=== PATIENT | female | born 1950 | race Caucasian/White ===

== ENCOUNTER 2025-08-23 00:32 | Emergency (ER) | payer OTHER, SELFPAY ==
[2025-08-23 00:34] VITALS: BP 144/65
[2025-08-23 00:47] LABS: Hematocrit 37.4 % (37.0-47.0); Hemoglobin 12.4 g/dL (12.0-16.0); Mean Corp Hgb Conc. 33.2 g/dL (33.0-37.0); Mean Corpuscular Volume 87.0 fL (81.0-99.0); Nucleated Red Blood Cells % 0 %; Platelet Count 304 10^3/uL (130-400); Red Cell Dist. Width 15.0 % (11.5-14.5)
[2025-08-23 00:53] VITALS: BP 147/88
[2025-08-23 00:56] VITALS: BMI 25.1
[2025-08-23 01:00] VITALS: BP 140/61
[2025-08-23 01:08] LABS: Urine Character Clear (Clear)
[2025-08-23 01:13] LABS: ALT (SGPT) 36 U/L (0-35); AST (SGOT) 30 U/L (14-36); Albumin 3.9 g/dl (3.5-5.0); Alkaline Phosphatase 68 U/L (38-126); Blood Urea Nitrogen 17 mg/dl (7-17); Calcium 9.6 mg/dl (8.4-10.2); Carbon Dioxide 29 mmol/L (22-30); Chloride 107 mmol/L (98-107); Estimated Creatinine Clearance 53 ml/min; Glucose 120 mg/dl (70-99); Potassium 4.5 mmol/L (3.5-5.1); Sodium 140 mmol/L (135-145); Total Protein 6.3 g/dl (6.3-8.2); eGFR > 60.00
[2025-08-23 01:37] LABS: Urine Red Blood Cell >100 /HPF (0-2)
[2025-08-23 01:42] LABS: Urine Squamous Cell 0-2 /LPF (Few)
[2025-08-23] MEDS: DILAUDID 0.5 MG IV (01:44)
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
[2025-08-23 02:04] VITALS: BP 127/60
[2025-08-23 03:00] VITALS: BP 116/61
[2025-08-23] MEDS: TORADOL 15 MG IV (03:05)
== END 2025-08-23 03:18 | disposition home or self-care (01) ==
LOC: EMR 00:32
PROVIDERS: Student in an Organized Health Care Education/Training Program; EMERGENCY PHYSICIAN Emergency Medicine; FAMILY PHYSICIAN Internal Medicine
DX: N13.2 Hydronephrosis with renal and ureteral calculous obstruction (principal); R03.0 Elevated blood-pressure reading, without diagnosis of hypertension; I10 Essential (primary) hypertension; E78.00 Pure hypercholesterolemia, unspecified; E89.0 Postprocedural hypothyroidism; Z82.49 Family history of ischemic heart disease and other diseases of the circulatory system
CPT/HCPCS: 99284; 96374; 96375; 74176; 80053; 81003; 81015; 85025; 87086